=== PATIENT | female | born 1950 | race Caucasian/White ===

== ENCOUNTER → 2017-01-12 | Outpatient (CLI) | payer BC ==
[~2017-01-12] MED LIST: CALTRATE 600600 MG PO; CIPRO250 MG PO; CLARITIN10 MG PO; FLEXERIL5 MG PO; HYDROCODONE BIT1 T11 PO; HYOMAX0.125 MG PO; MEDROL DOSEPAK4 MG PO; OMEPRAZOLE MAGN20 MG PO; VICODIN 5/500 505 MG PO; ZIAC 5 MG-6.251 TAB PO
== END | disposition home or self-care (01) ==
LOC: US 08:40
DX: R10.11 Right upper quadrant pain (principal); K76.0 Fatty (change of) liver, not elsewhere classified

== ENCOUNTER 2017-03-25 03:53 | Inpatient (IN) | payer OTHER ==
[2017-03-21 10:54] LABS: BASO # 0.1 10*3/uL (0.0-0.1); BASO % 0.8 % (0.0-1.0); EOS # 0.4 10*3/uL (0.0-0.4); EOS % 3.7 % (1.0-4.0); HEMATOCRIT 44.9 % (37.0-47.0); HEMOGLOBIN 15.4 g/dl (12.0-16.0); LYMPH # 2.2 10*3/uL (1.3-4.4); LYMPH % 21.7 % (27.0-41.0); MEAN CELL VOLUME 91.4 fl (81.0-99.0); MEAN CORPUSCULAR HGB 31.4 pg (27.0-31.0); MEAN CORPUSCULAR HGB CONC 34.3 g/dl (33.0-37.0); MEAN PLATELET VOLUME 10.5 fl (9.6-12.3); MONO # 0.7 10*3/uL (0.1-1.0); MONO % 6.3 % (3.0-9.0); NEUT # 6.9 10*3/uL (2.3-7.9); PLATELET COUNT AUTOMATED 250 10*3/uL (130-400); RED BLOOD COUNT 4.91 10*6/uL (4.10-5.10); WHITE BLOOD COUNT 10.3 10*3/uL (4.8-10.8)
[2017-03-25] VITALS (8 sets, daily range): BP systolic 109–143; BP diastolic 39–65
[~2017-03-25] VITALS: Ht 157.5 cm; Wt 67.7 kg
--- NOTE | ~2017-03-25 | WRIGHTHP ---
[place], [place] PATIENT HISTORY AND PHYSICAL EXAM NAME[id number] UN[facility] #: [id number] ROOM: DOCTOR: TONI ONTIVEROS MD BIRTHDATE: [birth year] DOS: 03/25/2017 DATE OF SURGERY: 03/25/2017 HISTORY OF PRESENT ILLNESS: A 67-year-old white female who is a 2, para 2, AB 0, who has been seen on a number of occasions, but presented on 03/19/2017 stating that she did want to proceed with her anterior repair and TVH. We had previously had a good discussion about the second degree uterine prolapse and large second degree cystocele. 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 She signed her consent and has been scheduled for 03/25/2017. PAST MEDICAL HISTORY: Reveals 2 pregnancies and 2 vaginal deliveries. She has a recent diagnosis of diabetes and states that she is taking oral medication for this, but she did not list this in the chart. She does take Amaryl 1 mg daily with breakfast or her first meal. She has discontinued taking Prilosec. The patient as I said also has hypertension and indigestion for which she was taking these other medications. She has had no other significant surgeries, illnesses or operations. She has had a colonoscopy in 2012, stable heel bone density in 2013 and her last Pap was 2015 and negative. Her last mammogram was 2015 and negative. SOCIAL HISTORY: She does smoke about a half pack per day and drinks socially only. ALLERGIES: Again no known allergies. REVIEW OF SYSTEMS: Otherwise is stable. FAMILY HISTORY: Reveals her father from heart attack. Her mother from bladder cancer. PHYSICAL EXAMINATION: GENERAL: Reveals a pleasant white female in no significant distress otherwise. VITAL SIGNS: She is 5 feet and 2 inches, 147 pounds, BMI is 27, blood pressure 130/78, oxygen sat is 99% with no history of sleep apnea. HEENT AND NECK: Stable. LUNGS: Stable. CARDIAC: Stable. BREASTS: Stable. ABDOMEN: Normal. EXTREMITIES: Grossly intact. NEUROLOGIC: Grossly intact. GENITOURINARY: External genitalia were normal. The vaginal exam is reasonably good posterior vaginal support, but she does have a large second degree cystocele and a second degree uterine prolapse. Bimanual is normal with the overall size of the uterus being normal and nontender. The adnexa were not palpable. [place], [place] PATIENT HISTORY AND PHYSICAL EXAM NAME: ALLEGRA RODRÍGUEZ UNIT #: [id number] ROOM: DOCTOR: TONI ONTIVEROS MD BIRTHDATE: [birth year] RECTAL: Negative. Stool Hematest negative. ASSESSMENT AND PLAN: The patient with uterine prolapse with a prominent cystocele and as I explained to the patient that my clinical concern is if we replaced and re-support the cystocele without re-supporting the mid urethra and the neck of the bladder with suprapubic TVT and cystoscopic evaluation that she may well have stress incontinence postop, particularly with all the activities that she has planned postoperatively and therefore we are going to add suprapubic TVT with cystoscopy to the TVH and anterior repair. TONI ONTIVEROS MD CM:HISPHYS:PATIENT HISTORY AND PHYSICAL EXAMINATION 0919 TONI ONTIVEROS MD 03/21/17 1024 interface
--- NOTE | ~2017-03-25 | O ---
[place], [place] OPERATIVE NOTE NAME: [facility]LE[facility]UEZ [id number] UNIT #: [id number] ROOM: 532 DOCTOR: AMARJIT MORSE MD BIRTHDATE: [birth year] DOS: 03/25/2017 PREOPERATIVE DIAGNOSES: Large symptomatic cystocele with associated uterine prolapse. POSTOPERATIVE DIAGNOSES: Large symptomatic cystocele with associated uterine prolapse. OPERATION: TVH, anterior repair, suprapubic TVT and cystoscopy. SURGEON: Amarjit Morse M.D. ANESTHESIA: General. ESTIMATED BLOOD LOSS: Well less than 100 mL. REPLACEMENTS: IV fluids, Ofirmev, Ancef and Toradol. COMPLICATIONS: There were no complications. CONDITION: The patient's condition to recovery stable. OPERATIVE SUMMARY: The patient was taken to the operating room in supine position, general anesthesia, endotracheal intubation, lithotomy position, prepped and draped in routine manner. A Boggs catheter was placed to straight drain and the cervix was then grasped. The uterus along with the bladder were at the introitus. The cervix itself, the definition of it was somewhat obscured with this large cystocele. We were able to define this, inject in a circumferential manner with 1% lidocaine with epinephrine and then make a circumferential incision. The bladder was displaced anteriorly and the rectum posteriorly. We then finally entered the posterior cul-de-sac and created uterosacral and cardinal ligament pedicles, ligating these with 0 Vicryl in transfixing manner. We further displaced the bladder anteriorly, entered the anterior cul-de-sac. Using the LigaSure device, a series of pedicles were created bilaterally up to the cornual region, removing then the uterus and cervix intact. The adnexa were not visible, but palpated normally bilaterally. We did then note peritoneal surface and noted good hemostasis and after noting a stable sponge and instrument count, the parietal peritoneum was closed with a pursestring 2-0 Vicryl suture. The cuff itself was closed with a series of interrupted 0 Vicryl [id number] sutures. From the cuff itself, we made a perpendicular incision in the anterior vagina up to a point just inferior to the urethral meatus. The bladder and the vesicovaginal fascia were dissected free from the vaginal mucosa. We then dissected in either side of the periurethral urethrovesical neck in the retropubic area and then introduced our suprapubic TVT introducers. We performed cystoscopy and noted no evidence of any trauma to the bladder, no foreign bodies within the bladder and otherwise normal appearing bladder. Once this was completed, we placed our TVT tape under absolutely no tension and once this was completed, we closed our suprapubic incisions with 3-0 Monocryl in a subcuticular manner. We then obliterated the cystocele with several layers of interrupted 2-0 Vicryl suture. We then removed excess [place], [place] OPERATIVE NOTE NAME: ALLEGRA RODRÍGUEZ UNIT #: [id number] ROOM: [facility] DOCTOR: AMARJIT MORSE MD BIRTHDATE: [birth year] anterior vaginal mucosa and then closed the anterior vaginal incision with a running locking 2-0 Vicryl suture. Noting good hemostasis in our anterior vertical incision and intertransverse cuff incision, we placed vaginal Premarin cream and then we placed 0.5 inch iodoform packing. The patient was then cleaned off, taken out of lithotomy position, awakened, extubated and transferred to recovery in stable condition with stable vital signs, good hemostasis, stable sponge and instrument count and clear and adequate urine output. AMARJIT MORSE MD CM:OPRECORD:OPERATIVE NOTE 1427 15 AMELIA MORSE MD 03/25/17 1714 interface
--- NOTE | ~2017-03-25 | DS ---
[place], [place] DISCHARGE SUMMARY NAME: ALLEGRA RODRÍGUEZ UNIT #: [id number] ROOM: 532 DOCTOR: TONI ONTIVEROS MD BIRTHDATE: [birth year] DOS: 03/26/2017 HOSPITAL COURSE: This is a pleasant lady, 67-year-old white female who underwent TVH, anterior repair, suprapubic TVT and cystoscopy on 03/25/2017 without complication and with minimal blood loss. Her preop diagnoses were symptomatic large cystocele and associated uterine prolapse. On postop day #1, the patient's vital signs are stable. Her cardiac and pulmonary status are stable. Her abdomen is soft with good bowel sounds. Suprapubic op sites are stable. There is no significant vaginal bleeding after removal of the vaginal packing this morning. She has not voided yet as the catheter was just removed. Calves and IV site are stable. I reviewed the operative findings as well as the procedures performed with both the patient and her and understanding was stated. I reviewed in detail the discharge instructions, the followup instructions in 4-6 weeks, use of Percocet 5/325 one p.o. q. 4-6 hours p.r.n., ____ with nonsteroidal anti-inflammatory agents. I also reviewed potential complications and advised the patient to contact the office should any of these arise. She did state understanding to the information that was provided and was discharged in satisfactory condition on 03/26/2017. TONI ONTIVEROS MD CM:WIN [id number] TONI ONTIVEROS MD 03/26/17 0755 interface
[~2017-03-25 03:53] MED LIST changes: +AMARYL1 M1 PO; +CALCIUM500 M1 PO; +ONE DAILY COMP1 EACH PO; +TRAMADOL HCL50 MG PO; +VITAMIN D10000 UNIT PO
--- NOTE | 2017-03-25 15:45 | NUR ---
Time: 1544 A 67 year old FEMALE admitted to under services of DR. WESTON STONE,TONI. Pt. arrived via bed from OR. Chief complaint: S/P HYSTERECTOMY ANTERIOR REPAIR. SARINA JONES
--- NOTE | 2017-03-25 16:35 | NUR ---
VERIFIED PATIENTS HOME [facility]S WITH [facility]
--- NOTE | 2017-03-25 18:26 | NUR ---
PATIENT MEDICATED WITH IVP TORADOL FOR PAIN IN HER ABDOMEN AND PELVIS RATED 4/10
--- NOTE | 2017-03-25 19:25 | NUR ---
PATIENT STATES MEDICATION EFFECTIVE
[2017-03-26] VITALS: BP 110/41
--- NOTE | 2017-03-26 00:53 | NUR ---
24 HR chart check completed.
--- NOTE | 2017-03-26 06:00 | NUR ---
Removed vaginal packing and vickers catheter as per doctor's order. Patient tolerated procedure well.
--- NOTE | 2017-03-26 07:36 | NUR ---
DR ONTIVEROS IN TO SEE PT. ORDERS RECEIVED FOR DISCHARGE.
[2017-03-26 08:00] VITALS: BP 120/50
--- NOTE | 2017-03-26 08:00 | NUR ---
Patient resting quietly with no c/o discomfort. Respirations easy and regular. Vital signs stable. No overt distress. CHRIS FINCH R
--- NOTE | 2017-03-26 09:30 | NUR ---
PT REQUESTED AND WAS MEDICATED WITH PERCOCET. WILL MONITOR
--- NOTE | 2017-03-26 09:50 | NUR ---
Discharge instructions reviewed with patient/family. Patient receptive and verbalizes understanding. Follow-up care arranged. Written instructions given to patient/family. CHRIS FINCH
== END 2017-03-26 09:50 | disposition home or self-care (01) | DRG 743 ==
LOC: SDC 03:53 → 5E 14:31
PROVIDERS: ADMIT Obstetrics & Gynecology
PROC: 0UT97ZZ Resection of Uterus, Via Natural or Artificial Opening (ICD-10-PCS; principal; 2017-03-25)
PROC: 0JQC0ZZ Repair Pelvic Region Subcutaneous Tissue and Fascia, Open Approach (ICD-10-PCS; 2017-03-25)
PROC: 0TQD8ZZ Repair Urethra, Via Natural or Artificial Opening Endoscopic (ICD-10-PCS; 2017-03-25)
PROC: 0TJB8ZZ Inspection of Bladder, Via Natural or Artificial Opening Endoscopic (ICD-10-PCS; 2017-03-25)
DX: N81.4 Uterovaginal prolapse, unspecified (principal); E11.9 Type 2 diabetes mellitus without complications; I10 Essential (primary) hypertension; F17.210 Nicotine dependence, cigarettes, uncomplicated; Z80.52 Family history of malignant neoplasm of bladder; Z82.49 Family history of ischemic heart disease and other diseases of the circulatory system; Z79.84 Long term (current) use of oral hypoglycemic drugs

== ENCOUNTER → 2017-05-10 | Day surgery (SDC) | payer OTHER ==
[~2017-05-10] VITALS: Ht 157.4 cm; Wt 65.8 kg
[~2017-05-10] MED LIST changes: +ZIAC 5-6.25 MG1 EACH PO
--- NOTE | ~2017-05-10 | O ---
[place], [place] OPERATIVE NOTE NAME: [id number] UNIT #: [id number] ROOM: DOCTOR: SADIQ STONELAITH BIRTHDATE: [birth year] DOS: 05/10/2017 GASTROENTEROSCOPIC REPORT INDICATION: This is a 67-year-old patient who has presented with multiple medical problems, among which has been right upper quadrant pain. The patient with a history of colonic polyp in 2012 as well. The patient with a history of fatty liver. HIDA scan of 35% in 2013. ALLERGIES: No known medication. FAMILY HISTORY: Noncontributory. PAST SURGICAL HISTORY: Unremarkable. PAST MEDICAL HISTORY: Hypertension and diabetes mellitus. SOCIAL HISTORY: Smoker. Social alcohol consumer. PROCEDURE: Today's procedure part of investigation is panendoscopy and colonoscopy. PREMEDICATION: Versed and Diprivan. SCOPE: Olympus forward-viewing gastroscope Q10 video. REPORT: After putting the patient in the left lateral position and after application of lubricant to the scope, the scope was introduced. Thereafter, under direct visualization, I advanced through the length of colon without difficulty. Base of the cecum explored. Upon service identified ileocecal valve defined. Mid ascending colon, there is an infiltrated flat polypoid lesion. This was photographed. Multiple biopsies obtained. Site was tattoo marked with 1 mL of ink. Scope was gradually withdrawn. Colonic prep was inadequate. However, we managed to get to the cecum with lavaging and cleaning. I found another polypoid lesion flat polyp with piecemeal polypectomy, again, was removed and another polypoid lesion again at sigmoid colon with piecemeal polypectomy was removed. Air was suctioned out. The patient was extubated, tolerated procedure well. IMPRESSION: Retained stool, mid ascending colon polyp, flat and infiltrated status post biopsies, status post ink tattoo marking. Multiple small other polyps, hyperplastic throughout the colon. PLAN AND DISCUSSION: This patient requires from now to be on colonic survey, pending on the biopsy results ____ the mid ascending colon. Further decisions after ____ and the patient advised to abstain from smoking, increase vegetables and fruits in the diet. We will visit with her 2 weeks in the office with the biopsy results and further decision thereafter. The patient is advised to have routine follow up with you. Definitely, she needs future colonic colonoscopy evaluations. [place], [place] OPERATIVE NOTE NAME: ALLEGRA RODRÍGUEZ UNIT #: [id number] ROOM: DOCTOR: SADIQ STONE,LAITH BIRTHDATE: [birth year] Thank you again for your kind referral. LAITH BABCOCK MD CM:OPRECORD:OPERATIVE NOTE [id number] AMLEIA BABCOCK MD 05/10/17 1409 interface
--- NOTE | ~2017-05-10 | O ---
[place], [place] OPERATIVE NOTE NAME: ALLEGRA RDORÍGUEZ UNIT #: [id number] ROOM: DOCTOR: LAITH BABCOCK MD BIRTHDATE: [birth year] DOS: 05/10/2017 INDICATION: The patient is a 67-year-old who has presented with chief complaint of epigastric abdominal pain, undergoing investigation. PROCEDURE: Today's procedure, panendoscopy plus biopsy. PREMEDICATION: Versed and Diprivan. SCOPE: Olympus forward-viewing gastroscope Q10 video. REPORT: After putting the patient in left lateral position and application of lubricant to the scope, the scope was introduced. Thereafter, under direct visualization, advanced through the length of esophagus without difficulty. Gastric pouch was entered. Evidence of gastritis seen. Antral biopsy was obtained. Duodenal bulb, second and third part within normal limit. The patient was extubated, tolerated the procedure well. IMPRESSION: Gastritis, status post biopsy. PLAN: Omeprazole 20 mg 1 every day. Clinical reassessment. We are going to proceed with colonoscopic assessment. LAITH BABCOCK MD CM:OPRECORD:OPERATIVE NOTE [id number] LAITH BABCOCK MD 06/05/17 1126 interface
[2017-05-10 10:30] VITALS: BP 136/50
[2017-05-10 13:30] VITALS: BP 111/51
[2017-05-10 13:45] VITALS: BP 115/45
[2017-05-10 13:58] VITALS: BP 123/52
== END | disposition home or self-care (01) ==
LOC: SDC 05-07 09:30
DX: D12.3 Benign neoplasm of transverse colon (principal); K29.50 Unspecified chronic gastritis without bleeding; K63.5 Polyp of colon; I10 Essential (primary) hypertension; E11.9 Type 2 diabetes mellitus without complications; K21.9 Gastro-esophageal reflux disease without esophagitis; Z98.51 Tubal ligation status; Z83.3 Family history of diabetes mellitus; Z80.9 Family history of malignant neoplasm, unspecified; F17.210 Nicotine dependence, cigarettes, uncomplicated; Z86.010 Personal history of colon polyps

== ENCOUNTER → 2017-06-27 | Outpatient (CLI) | payer OTHER | END | disposition home or self-care (01) | LOC: MAMMO 09:39 | DX: Z12.31 Encounter for screening mammogram for malignant neoplasm of breast (principal) ==

== ENCOUNTER 2017-10-08 14:44 | Emergency (ER) | payer OTHER ==
[~2017-10-08] VITALS: Ht 157.4 cm; Wt 66.7 kg
[2017-10-08 15:08] LABS: BASO # 0.1 10*3/uL (0.0-0.1); BASO % 0.5 % (0.0-1.0); EOS # 0.3 10*3/uL (0.0-0.4); EOS % 3.1 % (1.0-4.0); HEMATOCRIT 44.3 % (37.0-47.0); HEMOGLOBIN 14.9 g/dl (12.0-16.0); LYMPH # 2.8 10*3/uL (1.3-4.4); LYMPH % 27.4 % (27.0-41.0); MEAN CELL VOLUME 91.7 fl (81.0-99.0); MEAN CORPUSCULAR HGB 30.8 pg (27.0-31.0); MEAN CORPUSCULAR HGB CONC 33.6 g/dl (33.0-37.0); MEAN PLATELET VOLUME 9.9 fl (9.6-12.3); MONO # 0.8 10*3/uL (0.1-1.0); MONO % 7.6 % (3.0-9.0); NEUT # 6.3 10*3/uL (2.3-7.9); NEUT % 60.8 % (47.0-73.0); PLATELET COUNT AUTOMATED 255 10*3/uL (130-400); RED BLOOD COUNT 4.83 10*6/uL (4.10-5.10); RED CELL DISTRI WIDTH 13.6 % (0-14.5); WHITE BLOOD COUNT 10.3 10*3/uL (4.8-10.8)
[2017-10-08 15:17] LABS: ACT PARTIAL THROMBO TIME 26.1 SECONDS (20.8-31.5); INTERNATIONAL NORM RATIO 0.9 (2.0-3.5)
[2017-10-08 15:25] LABS: BUN 12 mg/dl (7-24); CHLORIDE 106 mmol/L (98-107); CREATININE 0.76 mg/dL (0.55-1.02); LIPASE 155 U/L (73-393); POTASSIUM 3.9 mmol/L (3.5-5.1); SGOT/AST 15 IU/L (3-35); SGPT/ALT 25 U/L (12-78); SODIUM 140 mmol/L (136-145)
[2017-10-08 15:26] LABS: ALKALINE PHOSPHATASE 98 U/L (45-117)
[2017-10-08 15:33] VITALS: BP 132/77
[2017-10-08 15:37] LABS: TROPONIN I < 0.015 ng/ml (<0.045)
== END 2017-10-08 16:00 | disposition short-term general hospital (02) ==
LOC: ED 14:44
PROVIDERS: Emergency Medicine
DX: G45.9 Transient cerebral ischemic attack, unspecified (principal); Z98.51 Tubal ligation status; Z79.899 Other long term (current) drug therapy; Z90.710 Acquired absence of both cervix and uterus

== ENCOUNTER 2017-10-15 01:48 | Inpatient (IN) | payer OTHER ==
[~2017-10-15] VITALS: Ht 157.4 cm; Wt 67.2 kg
[2017-10-15] VITALS (16 sets, daily range): BP systolic 104–182; BP diastolic 35–90
--- NOTE | ~2017-10-15 | CON ---
[place], [place] REPORT OF CONSULTATION NAME: [id number] UNIT #: [id number] ROOM: 521 DOCTOR: TAMELA JENKINS MD BIRTHDATE: [birth year] DOS: 10/15/2017 REASON FOR CONSULTATION: Chest pressure, cerebrovascular disease. HISTORY OF PRESENT ILLNESS: The patient is a 67-year-old woman who has a history of hypertension, type 2 diabetes mellitus and cigarette abuse. She was recently seen in the cardiology office on 10/08/[address] Chago Casey. She was referred for evaluation of a transient ischemic attack that happened a month earlier. In the office, she began having symptoms of left-sided weakness. This was similar to the symptoms she had the month previously. She was sent to the emergency room where a CAT scan showed no acute stroke, although there was evidence for remote stroke. A CT angiogram showed occlusion of the right common carotid with an 80-90% stenosis of the right internal carotid artery. She also had an 80% stenosis of the left internal carotid artery. She was evaluated at the [facility] by their stroke center. They felt that her events were too fresh to allow a safe carotid revascularization at this time and they requested that she be placed on dual antiplatelet therapy, controlled blood pressure, and that she stop smoking. Their plan was to follow up with her in 3 months and reconsider revascularization at that time. Since that hospitalization on 10/08/2017 the patient has felt reasonably well. Initially upon discharge, her blood pressure was low and her blood pressure medicines were withheld. After discharge; however, her blood pressure natasha again. She was told to resume her Ziac (bisoprolol and hydrochlorothiazide). Last evening, she began to feel strange and took her blood pressure. She noted that it was over 200 systolically. She also had head pressure and chest pressure and therefore came to the emergency room for further assessment. She states that the chest pressure has been present for some time and she has had palpitations as well. The chest pressure can occur at rest or with activity. She sometimes associates it with a "terry" over her head and chest that she cannot otherwise describe. In the emergency room, she was given 5 mg of IV metoprolol and was admitted to the hospital. Since she has been here, blood pressure has been 150 down to 104 systolic. Pulse has been in the 60s or 70s. PAST MEDICAL HISTORY: Includes 1. Mitral valve prolapse as a teenager associated with palpitations. A subsequent echocardiogram at [facility] did not indicate the presence of mitral valve prolapse on 10/10/2017. 2. Essential hypertension. 3. Type 2 diabetes mellitus. 4. Long-term cigarette abuse, abstinent since 10/08/2017. 5. History of back problems associated with a heavy sensation in her legs. 6. History of cerebrovascular disease. The patient had 3 transient ischemic attacks with left-sided numbness and weakness in early September 2017 followed by 2 subsequent episodes on October 08 prompting transfer to the [facility]. 7. CT angiogram of the carotids on 10/08/2017 at [facility] showed an 80-90% right internal carotid artery stenosis with total occlusion of [place], [place] REPORT OF CONSULTATION NAME: ALLEGRA RODRÍGUEZ UNIT #: [id number] ROOM: 521 DOCTOR: TAMELA JENKINS MD BIRTHDATE: [birth year] the right common carotid. The left internal carotid also had an 80% stenosis. The patient treated medically because of her recent events. 8. Echocardiogram 10/10/2017 [facility] showed ejection fraction of 70% with normal left ventricular size and function, normal right ventricular function and mild tricuspid insufficiency. No other valve abnormalities were noted. REVIEW OF SYSTEMS: The patient denies diplopia or loss of vision. She denies focal weakness since 10/08/2017. She has had some head pressure, but denies nausea or vomiting. She has had some chest pressure and mild dyspnea. She denies fevers, chills or sweats. She denies weight loss or gain. She denies hemoptysis or hematemesis. She denies any change in bowel or bladder habits. She denies blood in her stools or urine. She denies any skin rashes. She denies any peripheral edema. The remainder of the review of systems is negative except as noted above. SOCIAL HISTORY: The patient is . She does not consume excessive amounts of alcohol. She was a smoker, but quit 1 week ago. She is currently wearing a nicotine patch. MEDICATIONS: Prior to admission, bisoprolol with hydrochlorothiazide (Ziac) 5/6.25 one tablet daily, calcium carbonate 500 mg 2 tablets daily, cholecalciferol 10,000 units daily, clopidogrel 75 mg daily, glimepiride 1 mg daily, loratadine 10 mg daily p.r.n. allergies, multivitamin with minerals daily, and tramadol 50 mg daily p.r.n. ALLERGIES: She has no known drug allergies. FAMILY HISTORY: Negative for early coronary disease. PHYSICAL EXAMINATION: GENERAL: She is a well-nourished, white female who is awake, alert and oriented. VITAL SIGNS: Pulse is 62 and regular, blood pressure is 144/57. She is afebrile. She weighs 67.2 kg and has a body mass index 27.1. HEENT: Normocephalic and atraumatic. Extraocular muscles are intact. Sclerae are clear. Pupils equal, round and react to light. The oral mucosa is moist. Tongue is midline. NECK: Supple. She has no jugular distention. Carotids are full. I heard no bruits on the right, she had a soft left carotid bruit. She had no neck or supraclavicular masses, no thyromegaly. LUNGS: Respirations are unlabored. Her chest is clear to auscultation and percussion with a few crackles, right at the bases. There is no presacral edema or chest wall tenderness. CARDIOVASCULAR: Heart had a regular rhythm. She has a fourth heart sound, but no third heart sound or murmur. There was no midsystolic click. The PMI was not displaced. There was no precordial heave, lift or thrill. ABDOMEN: Soft and normally active without masses, organomegaly or bruits. EXTREMITIES: Showed no clubbing, cyanosis or edema. Peripheral pulses were palpable in the feet bilaterally. [place], [place] REPORT OF CONSULTATION NAME: ALLEGRA RODRÍGUEZ UNIT #: [id number] ROOM: 521 DOCTOR: TAMELA JENKINS MD BIRTHDATE: [birth year] LABORATORY DATA: I reviewed her electrocardiogram, which showed sinus rhythm with RSR prime in V1 and V2. There are T-wave inversions in the early precordial leads. The tracing is unchanged from 10/08/2017. IMPRESSIONS: 1. Hypertension, out of control with hypertensive urgency. 2. Cerebrovascular disease. 3. Recent crescendo TIA episode. 4. History of remote stroke. 5. Type 2 diabetes mellitus. 6. History of cigarette abuse, the patient abstinent for the last week. PLAN: The patient was recently evaluated at the [facility] for her stroke. She does have significant cerebrovascular disease and therefore is very likely to have coronary artery disease as well. She is not a candidate for acute intervention unless she develops ST elevation myocardial infarction or has very high risk findings on her stress test. I think, however, that we do need to risk stratify her. I, therefore, will proceed with a pharmacologic stress test. In the meantime, we will continue her on a beta terry and thiazide diuretic and monitor her blood pressure in the hospital. Further recommendations depend upon the results of the stress test. Since she just had an echocardiogram at [facility], an echocardiogram will not be repeated at this time. [facility] and I thank the hospitalist physicians for asking our advice regarding her care. TAMELA JENKINS MD CM:CONSTR:REPORT OF CONSULTATION 0927 10/15/17 1214 interface
[2017-10-15 02:21] LABS: BASO # 0.1 10*3/uL (0.0-0.1); BASO % 0.8 % (0.0-1.0); EOS # 0.2 10*3/uL (0.0-0.4); EOS % 2.6 % (1.0-4.0); HEMATOCRIT 41.2 % (37.0-47.0); LYMPH # 2.7 10*3/uL (1.3-4.4); LYMPH % 29.3 % (27.0-41.0); MEAN CELL VOLUME 91.6 fl (81.0-99.0); MEAN CORPUSCULAR HGB 31.1 pg (27.0-31.0); MEAN PLATELET VOLUME 10.5 fl (9.6-12.3); MONO # 0.8 10*3/uL (0.1-1.0); MONO % 8.2 % (3.0-9.0); NEUT # 5.4 10*3/uL (2.3-7.9); NEUT % 58.7 % (47.0-73.0); PLATELET COUNT AUTOMATED 269 10*3/uL (130-400); RED CELL DISTRI WIDTH 13.2 % (0-14.5); WHITE BLOOD COUNT 9.2 10*3/uL (4.8-10.8)
[2017-10-15 02:30] LABS: INTERNATIONAL NORM RATIO 0.9 (2.0-3.5)
[2017-10-15 02:38] LABS: ALBUMIN 3.8 gm/dl (3.1-4.5); ALKALINE PHOSPHATASE 106 U/L (45-117); BUN 21 mg/dl (7-24); CHLORIDE 106 mmol/L (98-107); CREATININE 0.89 mg/dL (0.55-1.02); POTASSIUM 4.5 mmol/L (3.5-5.1); SGOT/AST 30 IU/L (3-35); SGPT/ALT 26 U/L (12-78); SODIUM 143 mmol/L (136-145); TOTAL PROTEIN 7.7 gm/dL (6.4-8.2)
[2017-10-15 02:42] LABS: TROPONIN I < 0.015 ng/ml (<0.045)
[2017-10-15] MEDS ORDERED: PLAVIX75 M1 PO (06:27)
[2017-10-15 06:31] LABS: FREE T4 1.06 ng/dl (0.76-1.46); PHOSPHOROUS 3.4 mg/dL (2.5-4.9)
[2017-10-15 06:38] LABS: THYROID STIM HORMONE (HS) 3.14 uIU/ml (0.358-4.75)
[2017-10-15] MEDS ORDERED: ASPIRIN ADULT L81 M2 PO (18:05)
[2017-10-15] MEDS ORDERED: METOPROLOL SUCC25 M2 PO (18:05)
[2017-10-15] MEDS ORDERED: ATORVASTATIN CA80 M1 PO (18:05)
[2017-10-15] MEDS ORDERED: HYDR12.5C PO (18:05)
== END 2017-10-15 18:38 | disposition home or self-care (01) | DRG 205 ==
LOC: ED 01:48 → EDHOLD 05:02 → 5E 05:02
PROVIDERS: Emergency Medicine; Internal Medicine
PROC: 4A02XM4 Measurement of Cardiac Total Activity, External Approach (ICD-10-PCS; principal; 2017-10-15)
PROC: 3E073KZ Introduction of Other Diagnostic Substance into Coronary Artery, Percutaneous Approach (ICD-10-PCS; 2017-10-15)
DX: M94.0 Chondrocostal junction syndrome [Tietze] (principal); J18.9 Pneumonia, unspecified organism; I24.9 Acute ischemic heart disease, unspecified; I16.1 Hypertensive emergency; I16.0 Hypertensive urgency; E11.65 Type 2 diabetes mellitus with hyperglycemia; K21.9 Gastro-esophageal reflux disease without esophagitis; F41.9 Anxiety disorder, unspecified; E78.5 Hyperlipidemia, unspecified; I10 Essential (primary) hypertension; I34.1 Nonrheumatic mitral (valve) prolapse; Z86.73 Personal history of transient ischemic attack (TIA), and cerebral infarction without residual deficits; Z87.440 Personal history of urinary (tract) infections; Z90.710 Acquired absence of both cervix and uterus; Z87.891 Personal history of nicotine dependence; Z82.49 Family history of ischemic heart disease and other diseases of the circulatory system; Z80.52 Family history of malignant neoplasm of bladder; Z79.899 Other long term (current) drug therapy; Z98.51 Tubal ligation status; Z83.3 Family history of diabetes mellitus

== ENCOUNTER 2017-10-29 15:06 | Emergency (ER) | payer OTHER ==
[~2017-10-29] VITALS: Ht 157.4 cm; Wt 65.3 kg
[~2017-10-29 15:06] MED LIST changes: +ASPIRIN ADULT L81 M2 PO; +ATORVASTATIN CA80 M1 PO; +HYDR12.5C PO; +METOPROLOL SUCC25 M2 PO; +PLAVIX75 M1 PO
[2017-10-29 16:07] LABS: BASO # 0.1 10*3/uL (0.0-0.1); BASO % 0.8 % (0.0-1.0); EOS # 0.3 10*3/uL (0.0-0.4); EOS % 2.7 % (1.0-4.0); HEMATOCRIT 38.8 % (37.0-47.0); HEMOGLOBIN 13.6 g/dl (12.0-16.0); LYMPH # 1.6 10*3/uL (1.3-4.4); MEAN CELL VOLUME 90.4 fl (81.0-99.0); MEAN CORPUSCULAR HGB 31.7 pg (27.0-31.0); MEAN CORPUSCULAR HGB CONC 35.1 g/dl (33.0-37.0); MEAN PLATELET VOLUME 10.2 fl (9.6-12.3); MONO # 0.7 10*3/uL (0.1-1.0); MONO % 7.6 % (3.0-9.0); NEUT # 6.6 10*3/uL (2.3-7.9); NEUT % 71.7 % (47.0-73.0); PLATELET COUNT AUTOMATED 248 10*3/uL (130-400); RED BLOOD COUNT 4.29 10*6/uL (4.10-5.10); RED CELL DISTRI WIDTH 13.1 % (0-14.5); WHITE BLOOD COUNT 9.2 10*3/uL (4.8-10.8)
[2017-10-29 16:18] LABS: ACT PARTIAL THROMBO TIME 24.9 SECONDS (20.8-31.5)
[2017-10-29 16:24] LABS: ALBUMIN 3.8 gm/dl (3.1-4.5); ALKALINE PHOSPHATASE 105 U/L (45-117); BUN 16 mg/dl (7-24); CHLORIDE 103 mmol/L (98-107); CREATININE 0.85 mg/dL (0.55-1.02); POTASSIUM 3.3 mmol/L (3.5-5.1); SGOT/AST 12 IU/L (3-35); SGPT/ALT 24 U/L (12-78); SODIUM 141 mmol/L (136-145); TOTAL PROTEIN 7.7 gm/dL (6.4-8.2)
[2017-10-29 16:25] LABS: TROPONIN I < 0.015 ng/ml (<0.045)
[2017-10-29 16:44] VITALS: BP 142/61
== END 2017-10-29 17:16 | disposition short-term general hospital (02) ==
LOC: ED 15:06
PROVIDERS: Emergency Medicine
DX: M62.81 Muscle weakness (generalized) (principal); R29.898 Other symptoms and signs involving the musculoskeletal system; E78.5 Hyperlipidemia, unspecified; I10 Essential (primary) hypertension; E11.9 Type 2 diabetes mellitus without complications; Z90.710 Acquired absence of both cervix and uterus; Z79.899 Other long term (current) drug therapy

== ENCOUNTER → 2017-11-14 | Outpatient (CLI) | payer OTHER ==
[~2017-11-14] MED LIST changes: +COUMADIN5 M2 PO; +GLUCOPHAGE500 M1 PO; +LIPITOR40 MG PO; +TOPROL XL25 MG PO; +VITAMIN B12-FO1 EACH PO
== END | disposition home or self-care (01) ==
LOC: US 10:49
DX: E04.1 Nontoxic single thyroid nodule (principal)

== ENCOUNTER 2017-11-16 13:53 | Emergency (ER) | payer OTHER ==
[~2017-11-16] VITALS: Ht 157.4 cm; Wt 65.3 kg
[~2017-11-16 13:53] MED LIST changes: -COUMADIN5 M2 PO; -GLUCOPHAGE500 M1 PO; -LIPITOR40 MG PO; -TOPROL XL25 MG PO; -VITAMIN B12-FO1 EACH PO
[2017-11-16] MEDS ORDERED: LIPITOR40 MG PO (14:09)
[2017-11-16] MEDS ORDERED: VITAMIN B12-FO1 EACH PO (14:10)
[2017-11-16] MEDS ORDERED: GLUCOPHAGE500 M1 PO (14:10)
[2017-11-16] MEDS ORDERED: COUMADIN5 M2 PO (14:11)
[2017-11-16] MEDS ORDERED: TOPROL XL25 MG PO (14:12)
[2017-11-16 14:44] LABS: BASO # 0.1 10*3/uL (0.0-0.1); BASO % 0.8 % (0.0-1.0); EOS # 0.2 10*3/uL (0.0-0.4); EOS % 1.9 % (1.0-4.0); HEMATOCRIT 39.3 % (37.0-47.0); HEMOGLOBIN 13.5 g/dl (12.0-16.0); LYMPH # 1.8 10*3/uL (1.3-4.4); LYMPH % 19.8 % (27.0-41.0); MEAN CORPUSCULAR HGB 31.3 pg (27.0-31.0); MEAN CORPUSCULAR HGB CONC 34.4 g/dl (33.0-37.0); MONO # 0.6 10*3/uL (0.1-1.0); MONO % 6.5 % (3.0-9.0); NEUT # 6.2 10*3/uL (2.3-7.9); NEUT % 70.5 % (47.0-73.0); PLATELET COUNT AUTOMATED 246 10*3/uL (130-400); RED BLOOD COUNT 4.32 10*6/uL (4.10-5.10); WHITE BLOOD COUNT 8.8 10*3/uL (4.8-10.8)
[2017-11-16 14:54] LABS: ACT PARTIAL THROMBO TIME 37.5 SECONDS (20.8-31.5)
[2017-11-16 14:59] LABS: ALBUMIN 4.1 gm/dl (3.1-4.5); ALKALINE PHOSPHATASE 90 U/L (45-117); BUN 15 mg/dl (7-24); CHLORIDE 103 mmol/L (98-107); CREATININE 0.69 mg/dL (0.55-1.02); POTASSIUM 3.6 mmol/L (3.5-5.1); SGOT/AST 13 IU/L (3-35); SGPT/ALT 25 U/L (12-78); SODIUM 138 mmol/L (136-145); TOTAL PROTEIN 7.6 gm/dL (6.4-8.2)
[2017-11-16 15:30] VITALS: BP 156/82
== END 2017-11-16 15:29 | disposition short-term general hospital (02) ==
LOC: ED 13:53
PROVIDERS: Emergency Medicine
DX: R51 Headache (principal); R20.0 Anesthesia of skin; E11.9 Type 2 diabetes mellitus without complications; E78.5 Hyperlipidemia, unspecified; I10 Essential (primary) hypertension; Z90.710 Acquired absence of both cervix and uterus; Z98.890 Other specified postprocedural states; Z98.51 Tubal ligation status; Z79.899 Other long term (current) drug therapy; Z87.891 Personal history of nicotine dependence; Z86.73 Personal history of transient ischemic attack (TIA), and cerebral infarction without residual deficits; Z79.01 Long term (current) use of anticoagulants; Z79.82 Long term (current) use of aspirin

== ENCOUNTER → 2018-07-07 | Outpatient (CLI) | payer MEDICARE ==
[~2018-07-07] MED LIST changes: +COUMADIN5 M2 PO; +GLUCOPHAGE500 M1 PO; +LIPITOR40 MG PO; +TOPROL XL25 MG PO; +VITAMIN B12-FO1 EACH PO
[2018-07-07 09:26] LABS: CREATININE 0.88 mg/dL (0.55-1.02)
== END | disposition home or self-care (01) ==
LOC: LAB 08:47 → MRI 09:00
PROVIDERS: Radiology Diagnostic Radiology
DX: I63.9 Cerebral infarction, unspecified (principal)

== ENCOUNTER → 2018-08-13 | Day surgery (SDC) | payer MEDICARE ==
[~2018-08-13] VITALS: Ht 157.4 cm; Wt 65.8 kg
--- NOTE | ~2018-08-13 | O ---
[place], [place] OPERATIVE NOTE NAME: ALLEGRA RODRÍGUEZ UNIT #: [id number] ROOM: DOCTOR: LAITH BABCOCK MD BIRTHDATE: [birth year] DOS: 08/13/2018 INDICATIONS: The patient has presented with multiple medical issues among which has been dyspepsia and history of colonic polyp. PROCEDURE: Today's procedure part of investigation is panendoscopy plus colonoscopy. PREMEDICATION: Propofol. SCOPE: Olympus folding colonoscope 10L video. REPORT: After putting the patient in left lateral position and application of lubricant to the scope, the scope was introduced. Thereafter, under direct visualization, I advanced through the length of the esophagus without difficulty. Gastric pouch was entered. Gastritis seen. Duodenal bulb was entered. Two small duodenal ulcers were identified. Biopsy obtained. Photographic series done. The patient extubated, tolerated the procedure well. IMPRESSION: Gastritis, duodenal ulcers, small x 2 status post biopsy. PLAN AND DISCUSSION: We are going to keep this patient on omeprazole 40 mg daily. Furthermore, we are going to proceed with colonoscopy. GASTROENDOSCOPIC REPORT The patient has presented with a history of colonic polyp in the past undergoing investigation followup. The patient is 68 years old. ALLERGIES: No known medication. PAST MEDICAL HISTORY: Hyperlipidemia, diabetes, hypertension, history of cerebrovascular accidents x 2. PAST SURGICAL HISTORY: Hysterectomy. PROCEDURE: Today's procedure part of investigation is colonoscopy plus biopsies on polypectomies. PREMEDICATION: Propofol. SCOPE: Olympus folding colonoscope 10L video. REPORT: After putting the patient in left lateral position and application of lubricant to the scope, the scope was introduced. Thereafter, under direct visualization, advanced through the length of colon without difficulty. Sessile polypoid lesion in sigmoid colon with snare was polypectomized. Sessile polypoid lesion in the base of cecum with piecemeal polypectomy was removed. A broad-based polypoid lesion in mid ascending colon, which appears to have been tattooed in the past was addressed. Multiple biopsies obtained. The polyp was [place], [place] OPERATIVE NOTE NAME: ALLEGRA RODRÍGUEZ UNIT #: [id number] ROOM: DOCTOR: LAITH BABCOCK MD BIRTHDATE: [birth year] too broad to be polypectomized through a snaring. After multiple biopsies, the patient was extubated, tolerated the procedure well. IMPRESSION: Cecal polyp, mid ascending polyp with concern about dysplastic cell. This polyp needs to be surgically addressed. Otherwise, sigmoid colon polyp, status post snare polypectomy. PLAN: High fiber diet and follow up routinely with you in your office and follow up with us in GI Clinic. Thank you very much again for your kind referral. We will be watching the results for that mid ascending polyp even if it is adenomatous, we doubt high-grade dysplasia that polyp has to be in a year or two at most to be surgically removed. LAITH BABCOCK MD CM:LONAORD:OPERATIVE NOTE [id number] LAITH BABCOCK MD 08/13/18 1449 interface
[2018-08-13 10:45] VITALS: BP 150/66
[2018-08-13 12:26] VITALS: BP 138/57
[2018-08-13 12:41] VITALS: BP 133/75
[2018-08-13 12:50] VITALS: BP 147/46
== END | disposition home or self-care (01) ==
LOC: SDC 07-11 15:30
DX: Z12.11 Encounter for screening for malignant neoplasm of colon (principal); D12.0 Benign neoplasm of cecum; K63.5 Polyp of colon; K26.9 Duodenal ulcer, unspecified as acute or chronic, without hemorrhage or perforation; K21.9 Gastro-esophageal reflux disease without esophagitis; K29.70 Gastritis, unspecified, without bleeding; E78.5 Hyperlipidemia, unspecified; I10 Essential (primary) hypertension; E11.9 Type 2 diabetes mellitus without complications; E78.00 Pure hypercholesterolemia, unspecified; Z86.73 Personal history of transient ischemic attack (TIA), and cerebral infarction without residual deficits; Z90.710 Acquired absence of both cervix and uterus; Z86.010 Personal history of colon polyps; Z87.891 Personal history of nicotine dependence; Z98.890 Other specified postprocedural states; Z98.51 Tubal ligation status; Z79.899 Other long term (current) drug therapy; Z79.84 Long term (current) use of oral hypoglycemic drugs; Z83.3 Family history of diabetes mellitus

== ENCOUNTER → 2019-03-25 | Day surgery (SDC) | payer MEDICARE ==
[~2019-03-25] VITALS: Ht 157.4 cm; Wt 68.9 kg
[~2019-03-25] MED LIST changes: +DICYCLOMINE HCL10 MG PO; +GLIMEPIRIDE4 M1 PO; +PANTOPRAZOLE SO40 MG PO; +VITAMIN D31000 UNI1 PO
--- NOTE | ~2019-03-25 | O ---
[place], [place] OPERATIVE NOTE NAME: ALLEGRA RODRÍGUEZ UNIT #: [id number] ROOM: [facility] [birth year] DOS: 03/25/2019 GASTROENDOSCOPIC REPORT INDICATIONS: A 69-year-old patient who has presented with epigastric distress, chronic dyspepsia, guaiac positivity, status post right hemicolectomy history. PROCEDURE: Today's procedure part of investigation is panendoscopy and colonoscopy. PROCEDURE #1: Panendoscopy. PREMEDICATION: Propofol. SCOPE: Olympus forward-viewing gastroscope Q10 video. REPORT: After putting the patient in left lateral position and application of lubricant to the scope, the scope was introduced. Thereafter, under direct visualization, advanced through the length of esophagus into gastric pouch. Gastritis was noticed. Antral biopsy obtained. Duodenal bulb, second and third part within normal limits. The patient extubated after antral biopsy and GI reflection of the scope, tolerated the procedure well. IMPRESSION: Gastritis. PLAN AND DISCUSSION: Continuation of Protonix 40 mg every day. We are going to proceed with colonoscopy. PROCEDURE #2: Colonoscopy. INDICATIONS: The patient has presented with change in bowel habit, guaiac positivity, undergoing investigation. PROCEDURE: Today's procedure part of patient is colonoscopy plus biopsy and removal of multiple penetrated metallic clips at the anastomotic site and ulceration. PREMEDICATION: Propofol. SCOPE: Olympus forward-viewing colonoscope 10L video. DESCRIPTION OF PROCEDURE: After putting the patient in left lateral position and application of lubricant to the scope, the scope was introduced. Thereafter, under direct visualization, advanced through the length of colon without difficulty. Anastomotic site was approached and photographed, it is diffusely ulcerated. Multiple penetrated metallic clips was noticed at the site. With biopsies, multiple clips were removed. Ulcerated site was photographed and biopsied. Air was suctioned out. The patient was extubated, tolerated the procedure well. [place], [place] OPERATIVE NOTE NAME: ALLEGRA RODRÍGUEZ UNIT #: [id number] ROOM: DOCTOR[facility] [birth year] IMPRESSION: Ulcerated anastomotic site, penetrated multiple metallic clips at the anastomotic site, status post removal and diverticulosis. PLAN AND DISCUSSION: High fiber diet. ACTIVITY: Ad finn. FOLLOWUP: As an outpatient. Thank you very much indeed. LAITH BABCOCK MD CM:OPRECORD:OPERATIVE NOTE [id number] LAITH BABCOCK MD 03/25/19 0828 interface
[2019-03-25 07:03] VITALS: BP 144/56
[2019-03-25 07:57] VITALS: BP 126/59
[2019-03-25 08:12] VITALS: BP 130/57
[2019-03-25 08:27] VITALS: BP 134/53
== END | disposition home or self-care (01) ==
LOC: SDC 03-20 09:30
DX: R19.5 Other fecal abnormalities (principal); D12.2 Benign neoplasm of ascending colon; K29.50 Unspecified chronic gastritis without bleeding; K25.9 Gastric ulcer, unspecified as acute or chronic, without hemorrhage or perforation; K21.9 Gastro-esophageal reflux disease without esophagitis; E11.9 Type 2 diabetes mellitus without complications; I10 Essential (primary) hypertension; F32.9 Major depressive disorder, single episode, unspecified; Z98.890 Other specified postprocedural states; Z79.899 Other long term (current) drug therapy; Z79.4 Long term (current) use of insulin; Z86.73 Personal history of transient ischemic attack (TIA), and cerebral infarction without residual deficits; Z98.51 Tubal ligation status; Z83.3 Family history of diabetes mellitus; Z80.8 Family history of malignant neoplasm of other organs or systems

== ENCOUNTER → 2019-04-30 | Outpatient (CLI) | payer MEDICARE | END | disposition home or self-care (01) | LOC: CT 08:45 | DX: I65.22 Occlusion and stenosis of left carotid artery (principal) ==

== ENCOUNTER 2019-11-28 11:59 | Emergency (ER) | payer MEDICARE ==
[2019-11-28] MEDS ORDERED: GLUCOPHAGE500 M1 PO ×2 (12:19→12:20)
[2019-11-28 12:43] LABS: ALBUMIN 3.8 gm/dl (3.1-4.5); ALKALINE PHOSPHATASE 105 U/L (45-117); BUN 17 mg/dl (7-24); CHLORIDE 104 mmol/L (98-107); CREATININE 1.19 mg/dL (0.55-1.02); POTASSIUM 3.8 mmol/L (3.5-5.1); SGOT/AST 38 IU/L (3-35); SGPT/ALT 43 U/L (12-78); SODIUM 137 mmol/L (136-145); TOTAL PROTEIN 8.5 gm/dL (6.4-8.2)
[2019-11-28 12:45] LABS: TROPONIN I < 0.015 ng/ml (<0.045)
[2019-11-28] MEDS ORDERED: K2 PLUS D3 TAB1 EACH PO (12:55)
[2019-11-28 13:01] LABS: BASO # 0.1 10*3/uL (0.0-0.1); BASO % 0.7 % (0.0-1.0); EOS # 0.2 10*3/uL (0.0-0.4); HEMATOCRIT 37.9 % (37.0-47.0); LYMPH # 1.5 10*3/uL (1.3-4.4); LYMPH % 22.5 % (27.0-41.0); MEAN CELL VOLUME 87.7 fl (81.0-99.0); MEAN CORPUSCULAR HGB 29.2 pg (27.0-31.0); MEAN CORPUSCULAR HGB CONC 33.2 g/dl (33.0-37.0); MEAN PLATELET VOLUME 10.1 fl (9.6-12.3); MONO # 0.6 10*3/uL (0.1-1.0); MONO % 8.8 % (3.0-9.0); NEUT # 4.3 10*3/uL (2.3-7.9); NEUT % 64.7 % (47.0-73.0); PLATELET COUNT AUTOMATED 257 10*3/uL (130-400); RED BLOOD COUNT 4.32 10*6/uL (4.10-5.10); RED CELL DISTRI WIDTH 13.9 % (0-14.5); WHITE BLOOD COUNT 6.7 10*3/uL (4.8-10.8)
[2019-11-28 13:13] LABS: ACT PARTIAL THROMBO TIME 28.4 SECONDS (20.0-32.1)
[2019-11-28 15:18] VITALS: BP 129/37
[2019-11-28] MEDS ORDERED: ATIVAN0.5 MG PO (15:40)
== END 2019-11-28 15:47 | disposition home or self-care (01) ==
LOC: ED 11:59
PROVIDERS: Emergency Medicine
DX: R00.2 Palpitations (principal); R91.8 Other nonspecific abnormal finding of lung field; E11.9 Type 2 diabetes mellitus without complications; I10 Essential (primary) hypertension; K21.9 Gastro-esophageal reflux disease without esophagitis; Z87.891 Personal history of nicotine dependence

== ENCOUNTER → 2019-12-09 | Outpatient (CLI) | payer MEDICARE ==
[~2019-12-09] MED LIST changes: +ATIVAN0.5 MG PO; +K2 PLUS D3 TAB1 EACH PO
== END | disposition home or self-care (01) ==
LOC: COVID19 13:12
DX: R91.8 Other nonspecific abnormal finding of lung field (principal); Z20.828 Contact with and (suspected) exposure to other viral communicable diseases

== ENCOUNTER → 2019-12-15 | Day surgery (SDC) | payer MEDICARE ==
[~2019-12-15] VITALS: Ht 157.4 cm; Wt 76.7 kg
[2019-12-15 07:30] VITALS: BP 144/61
[2019-12-15 10:16] VITALS: BP 169/68
[2019-12-15 10:26] VITALS: BP 159/62
[2019-12-15 10:43] VITALS: BP 120/57
[2019-12-15 11:00] VITALS: BP 120/56
[2019-12-15 11:14] VITALS: BP 121/49
[2019-12-16 10:07] LABS: ACID FAST SPEC PROCESSING Concentration (.)
== END | disposition home or self-care (01) ==
LOC: SDC 12-11 13:15
PROVIDERS: Internal Medicine Critical Care Medicine
DX: R91.8 Other nonspecific abnormal finding of lung field (principal); I10 Essential (primary) hypertension; E11.9 Type 2 diabetes mellitus without complications; K21.9 Gastro-esophageal reflux disease without esophagitis; F32.9 Major depressive disorder, single episode, unspecified; Z87.891 Personal history of nicotine dependence; Z98.890 Other specified postprocedural states; Z79.899 Other long term (current) drug therapy; Z83.3 Family history of diabetes mellitus

== ENCOUNTER 2020-03-22 00:23 | Emergency (ER) | payer MEDICARE | END 2020-03-22 02:25 | disposition left against medical advice (07) | LOC: ED 00:23 | DX: R51.9 Headache, unspecified (principal); Z53.21 Procedure and treatment not carried out due to patient leaving prior to being seen by health care provider ==

== ENCOUNTER → 2020-06-20 | Outpatient (CLI) | payer MEDICARE | END | disposition home or self-care (01) | LOC: US 10:25 → MAMMO 11:30 | PROVIDERS: ATTEND Nurse Practitioner Women's Health | DX: Z12.31 Encounter for screening mammogram for malignant neoplasm of breast (principal); R10.2 Pelvic and perineal pain; N64.89 Other specified disorders of breast; Z90.710 Acquired absence of both cervix and uterus ==

== ENCOUNTER → 2020-07-21 | Outpatient (CLI) | payer MEDICARE ==
[2020-07-21 11:10] LABS: BASO # 0.1 10*3/uL (0.0-0.1); BASO % 0.8 % (0.0-1.0); EOS # 0.2 10*3/uL (0.0-0.4); EOS % 2.6 % (1.0-4.0); HEMATOCRIT 39.4 % (37.0-47.0); LYMPH % 16.1 % (27.0-41.0); MEAN CELL VOLUME 92.5 fl (81.0-99.0); MEAN CORPUSCULAR HGB CONC 32.5 g/dl (33.0-37.0); MEAN PLATELET VOLUME 9.6 fl (9.6-12.3); MONO # 0.5 10*3/uL (0.1-1.0); MONO % 8.1 % (3.0-9.0); NEUT # 4.4 10*3/uL (2.3-7.9); NEUT % 71.9 % (47.0-73.0); PLATELET COUNT AUTOMATED 209 10*3/uL (130-400); RED BLOOD COUNT 4.26 10*6/uL (4.10-5.10); RED CELL DISTRI WIDTH 14.6 % (0-14.5); WHITE BLOOD COUNT 6.1 10*3/uL (4.8-10.8)
[2020-07-21 11:39] LABS: ALBUMIN 3.6 gm/dl (3.1-4.5); CREATININE 1.11 mg/dL (0.55-1.02); POTASSIUM 3.6 mmol/L (3.5-5.1); TOTAL PROTEIN 7.8 gm/dL (6.4-8.2)
== END | disposition home or self-care (01) ==
LOC: LAB 10:44
PROVIDERS: ATTEND Internal Medicine Hematology & Oncology
DX: Z51.11 Encounter for antineoplastic chemotherapy (principal); R13.10 Dysphagia, unspecified; C34.31 Malignant neoplasm of lower lobe, right bronchus or lung; Z45.2 Encounter for adjustment and management of vascular access device

== ENCOUNTER → 2020-10-12 | Outpatient (CLI) | payer MEDICARE ==
[2020-10-12 14:03] LABS: CREATININE 1.21 mg/dL (0.55-1.02)
== END | disposition home or self-care (01) ==
LOC: LAB 12:58
PROVIDERS: Internal Medicine Hematology & Oncology; ATTEND Physical Medicine & Rehabilitation Sports Medicine
DX: Z51.11 Encounter for antineoplastic chemotherapy (principal); C34.31 Malignant neoplasm of lower lobe, right bronchus or lung; R13.10 Dysphagia, unspecified; Z45.2 Encounter for adjustment and management of vascular access device

== ENCOUNTER → 2020-10-27 | Outpatient (CLI) | payer MEDICARE ==
[2020-10-27 10:35] LABS: ALBUMIN 3.7 gm/dl (3.1-4.5); ALKALINE PHOSPHATASE 95 U/L (45-117); BUN 17 mg/dl (7-24); CHLORIDE 106 mmol/L (98-107); CHOLESTEROL 131 mg/dL (<200); CREATININE 1.08 mg/dL (0.55-1.02); FREE T4 1.09 ng/dl (0.76-1.46); LDL CHOLESTEROL 50 mg/dL (9-159); POTASSIUM 3.5 mmol/L (3.5-5.1); SGOT/AST 12 IU/L (3-35); SGPT/ALT 25 U/L (12-78); SODIUM 142 mmol/L (136-145); TOTAL PROTEIN 7.7 gm/dL (6.4-8.2); TRIGLYCERIDES 172 mg/dl (<150)
[2020-10-27 11:02] LABS: VITAMIN D, 25-HYDROXY 39.3 ng/mL (30-100)
[2020-10-28 10:07] LABS: CREATININE,URINE 67.1 mg/dL (Not Estab.)
== END | disposition home or self-care (01) ==
LOC: LAB 09:44
PROVIDERS: ATTEND Internal Medicine Endocrinology, Diabetes & Metabolism
DX: E11.65 Type 2 diabetes mellitus with hyperglycemia (principal); E55.9 Vitamin D deficiency, unspecified; G62.9 Polyneuropathy, unspecified; R63.5 Abnormal weight gain

== ENCOUNTER → 2021-04-26 | Outpatient (CLI) | payer MEDICARE ==
[2021-04-26 10:28] LABS: ALBUMIN 2.5 gm/dl (3.1-4.5); BUN 17 mg/dl (7-24); CHLORIDE 108 mmol/L (98-107); POTASSIUM 3.8 mmol/L (3.5-5.1); SODIUM 140 mmol/L (136-145)
== END | disposition home or self-care (01) ==
LOC: LAB 09:41
PROVIDERS: ATTEND Internal Medicine
DX: E87.6 Hypokalemia (principal)

== ENCOUNTER → 2021-09-28 | Outpatient (CLI) | payer MEDICARE ==
[2021-09-28 09:20] LABS: BILIRUBIN Negative (Negative); BLOOD Negative (Negative); CLARITY Cloudy (Clear); COLOR Yellow (Yellow); GLUCOSE 2+ (Negative); KETONE Negative (Negative); LEUKO ESTERASE 2+ (Negative); NITRITE Positive (Negative); SPECIFIC GRAVITY 1.025 (1.001-1.030)
[2021-09-28 09:38] LABS: BUN 15 mg/dl (7-24); CHLORIDE 107 mmol/L (98-107); CHOLESTEROL 152 mg/dL (<200); CREATININE 0.92 mg/dL (0.55-1.02); IRON 102 ug/dL (50-170); SGOT/AST 12 IU/L (3-35); SGPT/ALT 25 U/L (12-78); SODIUM 140 mmol/L (136-145); TOTAL IRON BINDING CAPACITY 350 ug/dl (250-450); TRIGLYCERIDES 157 mg/dl (<150)
[2021-09-28 09:40] LABS: ALKALINE PHOSPHATASE 98 U/L (45-117); LDL CHOLESTEROL 67 mg/dL (9-159); TOTAL PROTEIN 7.3 gm/dL (6.4-8.2)
[2021-09-28 10:49] LABS: BACTERIA 2+; WBC TNTC wbc/hpf (0-5)
[2021-09-28 16:39] LABS: VITAMIN D, 25-HYDROXY 39.5 ng/mL (30-100)
== END | disposition home or self-care (01) ==
LOC: LAB 08:50
PROVIDERS: ATTEND Internal Medicine
DX: E11.65 Type 2 diabetes mellitus with hyperglycemia (principal); D64.9 Anemia, unspecified; E55.9 Vitamin D deficiency, unspecified; E78.5 Hyperlipidemia, unspecified

== ENCOUNTER → 2021-10-13 | Outpatient (CLI) | payer MEDICARE ==
[2021-10-13 09:21] LABS: BILIRUBIN Negative (Negative); BLOOD Negative (Negative); CLARITY Cloudy (Clear); COLOR Yellow (Yellow); GLUCOSE Negative (Negative); KETONE Negative (Negative); LEUKO ESTERASE 2+ (Negative); NITRITE Negative (Negative); UROBILINOGEN 0.2 E.U./dl (0.0-1.0)
[2021-10-13 11:19] LABS: BACTERIA 3+; EPITHELIAL CELLS 21-30; WBC 21-30 wbc/hpf (0-5)
== END | disposition home or self-care (01) ==
LOC: LAB 08:30
PROVIDERS: ATTEND Internal Medicine
DX: N39.0 Urinary tract infection, site not specified (principal)

== ENCOUNTER → 2022-07-06 | Outpatient (CLI) | payer MEDICARE ==
[2022-07-06 11:06] LABS: BILIRUBIN Negative (Negative); BLOOD Negative (Negative); CLARITY Clear (Clear); COLOR Yellow (Yellow); GLUCOSE 2+ (Negative); KETONE Negative (Negative); LEUKO ESTERASE 1+ (Negative); NITRITE Negative (Negative); PH 5.5 (4.5-8.0); SPECIFIC GRAVITY 1.025 (1.001-1.030); UROBILINOGEN 0.2 E.U./dl (0.0-1.0)
[2022-07-06 11:23] LABS: BACTERIA 4+; MUCOUS TRACE
== END | disposition home or self-care (01) ==
LOC: LAB 10:01
PROVIDERS: ATTEND Urology
DX: R31.9 Hematuria, unspecified (principal)

== ENCOUNTER → 2022-07-20 | Outpatient (CLI) | payer MEDICARE, MEDICAID | END | disposition home or self-care (01) | LOC: MRI 00:40 | PROVIDERS: ATTEND Internal Medicine | DX: M47.26 Other spondylosis with radiculopathy, lumbar region (principal); M48.061 Spinal stenosis, lumbar region without neurogenic claudication; M25.78 Osteophyte, vertebrae; M51.16 Intervertebral disc disorders with radiculopathy, lumbar region ==

== ENCOUNTER → 2022-09-19 | Outpatient (CLI) | payer MEDICARE, MEDICAID ==
[2022-09-19 09:17] LABS: BILIRUBIN Negative (Negative); BLOOD Negative (Negative); CLARITY Turbid (Clear); COLOR Yellow (Yellow); GLUCOSE Negative (Negative); KETONE Negative (Negative); LEUKO ESTERASE 2+ (Negative); NITRITE Negative (Negative); SPECIFIC GRAVITY 1.025 (1.001-1.030); UROBILINOGEN 0.2 E.U./dl (0.0-1.0)
[2022-09-19 09:32] LABS: RBC 0-2 rbc/hpf (0-2)
[2022-09-19 09:33] LABS: BACTERIA 2+
[2022-09-19 09:53] LABS: ALKALINE PHOSPHATASE 100 U/L (46-116); BUN 12 mg/dl (9-23); CHLORIDE 106 mmol/L (98-107); CHOLESTEROL 112 mg/dL (<200); LDL CHOLESTEROL 47 mg/dL (9-159); POTASSIUM 3.5 mmol/L (3.4-5.1); SGPT/ALT 16 U/L (10-49); TOTAL PROTEIN 7.5 gm/dL (6.0-8.0); TRIGLYCERIDES 111 mg/dl (<150)
== END | disposition home or self-care (01) ==
LOC: LAB 08:19
PROVIDERS: ATTEND Internal Medicine
DX: E11.65 Type 2 diabetes mellitus with hyperglycemia (principal); E55.9 Vitamin D deficiency, unspecified; E78.5 Hyperlipidemia, unspecified; K76.0 Fatty (change of) liver, not elsewhere classified

== ENCOUNTER → 2022-12-28 | Outpatient (CLI) | payer MEDICARE, MEDICAID | END | disposition home or self-care (01) | LOC: US 07:52 | PROVIDERS: ATTEND Internal Medicine | DX: I73.9 Peripheral vascular disease, unspecified (principal); R09.89 Other specified symptoms and signs involving the circulatory and respiratory systems ==

== ENCOUNTER → 2023-01-16 | Outpatient (CLI) | payer MEDICARE ==
[2023-01-16 13:15] LABS: BILIRUBIN Negative (Negative); BLOOD Negative (Negative); CLARITY Clear (Clear); COLOR Yellow (Yellow); GLUCOSE 3+ (Negative); KETONE Trace (Negative); LEUKO ESTERASE 1+ (Negative); NITRITE Negative (Negative); PH 7.5 (4.5-8.0); SPECIFIC GRAVITY 1.025 (1.001-1.030)
[2023-01-16 13:40] LABS: ALKALINE PHOSPHATASE 113 U/L (46-116); BUN 13 mg/dl (9-23); CHLORIDE 100 mmol/L (98-107); CHOLESTEROL 137 mg/dL (<200); FREE T4 1.04 ng/dl (0.89-1.76); LDL CHOLESTEROL 61 mg/dL (9-159); POTASSIUM 4.3 mmol/L (3.4-5.1); SGPT/ALT 22 U/L (10-49); TOTAL PROTEIN 7.5 gm/dL (6.0-8.0); TRIGLYCERIDES 127 mg/dl (<150)
[2023-01-16 14:19] LABS: BACTERIA 2+
== END | disposition home or self-care (01) ==
LOC: LAB 12:05
PROVIDERS: ATTEND Internal Medicine
DX: E11.65 Type 2 diabetes mellitus with hyperglycemia (principal); E55.9 Vitamin D deficiency, unspecified; E78.5 Hyperlipidemia, unspecified; E04.9 Nontoxic goiter, unspecified

== ENCOUNTER → 2023-04-01 | Outpatient (CLI) | payer OTHER, MEDICAID | END | disposition home or self-care (01) | LOC: MAMMO 01:06 | PROVIDERS: ATTEND Internal Medicine | DX: Z12.31 Encounter for screening mammogram for malignant neoplasm of breast (principal) ==

== ENCOUNTER 2023-08-23 02:13 | Emergency (ER) | payer OTHER, MEDICAID ==
[~2023-08-23] VITALS: Ht 152.4 cm; Wt 79.4 kg
[2023-08-23 02:23] VITALS: BP 163/68
[2023-08-23] MEDS ORDERED: Metoclopramide Hydrochloride 10 MG/2 ML AMP IV ONE (02:25)
[2023-08-23] MEDS ORDERED: Ketorolac Tromethamine 30 MG/ML VIAL IV ONE (02:25)
[2023-08-23] MEDS ORDERED: ACETAMINOPHEN 325 MG TAB PO ONE (02:25)
[2023-08-23] MEDS ORDERED: diphenhydrAMINE hydrochloride 50 MG/ML VIAL IV ONE (02:25)
[2023-08-23 02:48] LABS: BASO % 0.6 % (0.0-1.0); EOS # 0.2 10*3/uL (0.0-0.4); EOS % 3.8 % (1.0-4.0); HEMATOCRIT 40.8 % (37.0-47.0); LYMPH # 1.4 10*3/uL (1.3-4.4); LYMPH % 22.6 % (27.0-41.0); MEAN CELL VOLUME 94.2 fl (81.0-99.0); MEAN CORPUSCULAR HGB 30.9 pg (27.0-31.0); MEAN CORPUSCULAR HGB CONC 32.8 g/dl (33.0-37.0); MEAN PLATELET VOLUME 9.5 fl (9.6-12.3); MONO # 0.6 10*3/uL (0.1-1.0); MONO % 9.3 % (3.0-9.0); NEUT % 63.2 % (47.0-73.0); PLATELET COUNT AUTOMATED 231 10*3/uL (130-400); RED BLOOD COUNT 4.33 10*6/uL (4.10-5.10); RED CELL DISTRI WIDTH 14.3 % (0-14.5); WHITE BLOOD COUNT 6.4 10*3/uL (4.8-10.8)
[2023-08-23 03:07] LABS: ALKALINE PHOSPHATASE 111 U/L (46-116); BUN 12 mg/dl (9-23); CHLORIDE 103 mmol/L (98-107); POTASSIUM 3.9 mmol/L (3.4-5.1); SGPT/ALT 36 U/L (5-49); TOTAL PROTEIN 7.4 gm/dL (6.0-8.0)
[2023-08-23] MEDS ORDERED: REGLAN10 M1 PO (05:21)
== END 2023-08-23 05:36 | disposition home or self-care (01) ==
LOC: ED 02:13
PROVIDERS: Internal Medicine
DX: R51.9 Headache, unspecified (principal); E11.9 Type 2 diabetes mellitus without complications; I10 Essential (primary) hypertension; Z86.73 Personal history of transient ischemic attack (TIA), and cerebral infarction without residual deficits; K21.9 Gastro-esophageal reflux disease without esophagitis

== ENCOUNTER → 2023-09-13 | Outpatient (CLI) | payer OTHER, MEDICAID ==
[~2023-09-13] MED LIST changes: +REGLAN10 M1 PO
== END ==
LOC: US 09:49
PROVIDERS: ATTEND Urology
DX: N28.89 Other specified disorders of kidney and ureter (principal)

== ENCOUNTER → 2024-07-25 | Outpatient (CLI) | payer OTHER, MEDICAID | END | disposition home or self-care (01) | LOC: US 02:27 | PROVIDERS: ATTEND Urology | DX: R32 Unspecified urinary incontinence (principal) ==

== ENCOUNTER 2024-08-09 21:44 | Emergency (ER) | payer OTHER, MEDICAID ==
[~2024-08-09] VITALS: Ht 157.4 cm; Wt 74.8 kg
[2024-08-09 22:03] VITALS: BP 154/54
[2024-08-09] MEDS ORDERED: Tdap Vaccine 0.5 ML SYR (Adult Vaccine) IM ONE (22:20)
== END 2024-08-10 00:12 | disposition home or self-care (01) ==
LOC: ED 21:44
DX: S01.01XA Laceration without foreign body of scalp, initial encounter (principal); Z79.899 Other long term (current) drug therapy; Z98.890 Other specified postprocedural states; Z90.49 Acquired absence of other specified parts of digestive tract; Z90.710 Acquired absence of both cervix and uterus; Z87.891 Personal history of nicotine dependence; Z86.73 Personal history of transient ischemic attack (TIA), and cerebral infarction without residual deficits; W01.198A Fall on same level from slipping, tripping and stumbling with subsequent striking against other object, initial encounter; Y93.01 Activity, walking, marching and hiking; Y92.098 Other place in other non-institutional residence as the place of occurrence of the external cause; Y99.8 Other external cause status